=== PATIENT | female | born 1960 | race African-American/Black ===

== ENCOUNTER 2020-03-31 11:38 | Inpatient (IN) | payer OTHER ==
[~2020-03-31] VITALS: Ht 152.4 cm; Wt 77.1 kg
[2020-03-31 11:40] VITALS: BP 141/84
--- NOTE | 2020-03-31 12:11 | Emergency Room Report ---
History of Present Illness General Chief Complaint: Chest Pain Source: Patient, EMS Present Illness HPI Patient is a 59-year-old female past medical history of leukemia recent diagnosis status post chemotherapy last chemo March 22 also the date of first discharge from [facility] where she states she went in for abdominal pain and was diagnosed with leukemia a month prior presents to the ER from home for chest davon n. Patient was brought in by EMS. Patient complains of substernal chest pain which is sharp with associated shortness of breath. EMS gave the patient oral aspirin as well as sublingual nitro. She states that it mildly improved her pain. She states that the pain is worse on deep inspiration. She denies any fever or chills. She denies any cough. Denies any abdominal pain. She complains of left calf pain. She states that while she was at [facility] they did ultrasounds and told her that she would did not have a blood clot. She denies any cardiac history. Allergies: Coded Allergies: No Known Allergies (Unverified , 03/31/20) COVID-19 Screening Contact w/high risk pt: No Experienced COVID-19 symptoms?: No COVID-19 Testing performed CHISEL GRINDER: Yes - a week ago COVID-19 Screening: Negative COVID-19 COVID-19 Testing Source: clinic Patient History Reviewed Nursing Documentation: PMH: Agreed; PSxH: Agreed Review of Systems All Other Systems: negative except mentioned in HPI Physical Exam Vital Signs Date Time Temp Pulse Resp B/P (MAP) Pulse Ox O2 Delivery O2 Flow Rate FiO2 03/31/20 11:30 98.6 19 136/90 (105) 99 Room Air Sp02 EP Interpretation: reviewed, normal General Appearance: alert, GCS 15, non-toxic, mild distress Head: normocephalic, atraumatic Eyes: bilateral eye normal inspection, bilateral eye PERRL ENT: hearing grossly normal, normal pharynx, no angioedema, normal voice Neck: full range of motion, supple/symm/no masses Respiratory: chest non-tender, lungs clear, normal breath sounds, speaking full sentences Cardiovascular #1: normal peripheral pulses, regular rate, rhythm Gastrointestinal: normal bowel sounds, non tender, soft, non-distended, no guarding, no rebound Rectal: deferred Musculoskeletal: other - Left calf tenderness to palpation with no erythema, left upper extremity PICC line in place Neurologic: associate faculty III-XII nml as tested, oriented x3 Psychiatric: judgement/insight normal Skin: no rash Lymphatic: no adenopathy Procedures Critical Care Time Critical Care Time Total critical care time: Approximately 35 minutes. Due to a high probability of clinically significant, life threatening deterioration, the patient required my highest level of preparedness to intervene emergently and I personally spent this critical care time directly and personally managing the patient. This critical care time included obtaining a history; examining the patient; pulse oximetry; ordering and review of studies; arranging urgent treatment with development of a management plan; evaluation of patient's response to treatment; frequent reassessment; and, discussions with other providers.This critical care time was performed to assess and manage the high probability of imminent, life- threatening deterioration that could result in multi-organ failure. It was exclusive of separately billable procedures and treating other patients and teaching time. Please see MDM section and the rest of the note for further information on pat ient assessment and treatment. Medical Decision Making Diagnostic Impression: Primary Impression: Chest pain Additional Impression: Deep vein thrombosis ER Course Patient's ultrasound demonstrates DVT of the left lower extremity. Heparin has been ordered. Patient is pending a CTA chest to RO PE. I spoke with Dr. Chase from [facility] who states that the patient can be admitted here due to the fact the patient has active chest pain, intermittent tachycardia, DVT and likely PE on heparin. Laboratory Tests Test 03/31/20 11:55 White Blood Count 6.6 K/UL (4.8-10.8) Red Blood Count 2.76 M/UL (4.20-5.40) L Hemoglobin 9.3 G/DL (12.0-16.0) L Hematocrit 28.8 % (37.0-47.0) L Mean Corpuscular Volume 105 FL (80-99) H Mean Corpuscular Hemoglobin 33.7 PG (27.0-31.0) H Mean Corpuscular Hemoglobin Concent 32.3 G/DL (32.0-36.0) Red Cell Distribution Width 20.6 % (11.6-14.8) H Platelet Count 215 K/UL (150-450) Mean Platelet Volume 6.4 FL (6.5-10.1) L Neutrophils (%) (Auto) 74.4 % (45.0-75.0) Lymphocytes (%) (Auto) 12.4 % (20.0-45.0) L Monocytes (%) (Auto) 10.3 % (1.0-10.0) H Eosinophils (%) (Auto) 1.5 % (0.0-3.0) Basophils (%) (Auto) 1.4 % (0.0-2.0) Prothrombin Time 10.3 SEC (9.30-11.50) Prothrombin Time INR 0.9 (0.9-1.1) Activated Partial Thromboplast Time 20 SEC (23-33) L D-Dimer 3.28 mg/L FEU (0.00-0.49) H Sodium Level 140 MMOL/L (136-145) Potassium Level 4.4 MMOL/L (3.5-5.1) Chloride Level 106 MMOL/L (98-107) Carbon Dioxide Level 27 MMOL/L (21-32) Anion Gap 7 mmol/L (5-15) Blood Urea Nitrogen 15 mg/dL (7-18) Creatinine 0.8 MG/DL (0.55-1.30) Estimated Glomerular Filtration Rate > 60 mL/min (>60) Glucose Level 139 MG/DL (74-106) H Calcium Level 8.3 MG/DL (8.5-10.1) L Magnesium Level 2.1 MG/DL (1.8-2.4) Total Bilirubin 0.6 MG/DL (0.2-1.0) Aspartate Amino Transferase (AST) 17 U/L (15-37) Alanine Aminotransferase (ALT) 33 U/L (12-78) Alkaline Phosphatase 37 U/L (46-116) L Troponin I 0.004 ng/mL (0.000-0.056) Pro-B-Type Natriuretic Peptide 60 pg/mL (0-125) Total Protein 6.4 G/DL (6.4-8.2) Albumin 3.5 G/DL (3.4-5.0) Globulin 2.9 g/dL Albumin/Globulin Ratio 1.2 (1.0-2.7) EKG Diagnostic Results Troponin ordered: Yes When was troponin ordered?: Mar 31, 2020 EKG Time: 11:37 EP Interpretation: Desi Renee MD Rate: normal - 93 bpm Rhythm: NSR ST Segments: no acute changes ASA given to the pt in ED: No Rhythm Strip Diag. Results Rhythm Strip Time: 12:10 EP Interpretation: yes - Desi Renee MD Rate: 108 bpm Rhythm: no PVC's, no ectopy, other - Sinus tachycardia Chest X-Ray Diagnostic Results Chest X-Ray Diagnostic Results : Chest X-Ray Ordered: Yes # of Views/Limited/Complete: 1 View Indication: Chest Pain EP Interpretation: Yes Interpretation: no consolidation, no effusion, no pneumothorax, no acute cardiopulmonary disease, other - Mild cardiomegaly Impression: No acute disease Electronically Signed by: Desi Renee MD Last Vital Signs Date Time Temp Pulse Resp B/P (MAP) Pulse Ox O2 Delivery O2 Flow Rate FiO2 03/31/20 11:30 98.6 19 136/90 (105) 99 Room Air Disposition: ADMITTED INPATIENT - Telemetry Condition: Critical Additional Instructions: Please note that this report is being documented using DRAGON technology. This can lead to erroneous entry secondary to incorrect interpretation by the dictating instrument. Deis Renee M.D. Mar 31, 2020 12:10
[2020-03-31 12:18] LABS: BASOPHILS % (AUTO) 1.4 % (0.0-2.0); EOSINOPHILS % (AUTO) 1.5 % (0.0-3.0); HEMATOCRIT 28.8 % (37.0-47.0); HEMOGLOBIN 9.3 G/DL (12.0-16.0); LYMPHOCYTES % (AUTO) 12.4 % (20.0-45.0); MEAN CORPUSCULAR VOLUME 105 FL (80-99); MONOCYTES % (AUTO) 10.3 % (1.0-10.0); NEUTROPHILS % (AUTO) 74.4 % (45.0-75.0); PLATELET COUNT 215 K/UL (150-450); RED BLOOD COUNT 2.76 M/UL (4.20-5.40); RED CELL DISTRIBUTION WIDTH 20.6 % (11.6-14.8); WHITE BLOOD COUNT 6.6 K/UL (4.8-10.8)
[2020-03-31] MEDS: fentaNYL 100 mcg/2 mL IV ONE ×2 (12:18→12:19)
[2020-03-31 12:36] LABS: ANION GAP 7 mmol/L (5-15); BLOOD UREA NITROGEN 15 mg/dL (7-18); CALCIUM 8.3 MG/DL (8.5-10.1); CARBON DIOXIDE 27 MMOL/L (21-32); CHLORIDE 106 MMOL/L (98-107); CREATININE 0.8 MG/DL (0.55-1.30); POTASSIUM 4.4 MMOL/L (3.5-5.1); SODIUM 140 MMOL/L (136-145)
[2020-03-31 12:38] LABS: INR 0.9 (0.9-1.1)
[2020-03-31 12:42] LABS: ALANINE AMINOTRANSFERASE 33 U/L (12-78); ALBUMIN 3.5 G/DL (3.4-5.0); ALBUMIN/GLOBULIN RATIO 1.2 (1.0-2.7); ALKALINE PHOSPHATASE 37 U/L (46-116); ASPARTATE AMINO TRANSFERASE 17 U/L (15-37); BILIRUBIN,TOTAL 0.6 MG/DL (0.2-1.0)
[2020-03-31] MEDS ORDERED: Omnipaque 350 100ml vial INJ PRN (13:15)
[2020-03-31 13:30] VITALS: BP 148/81
[2020-03-31] MEDS ORDERED: Heparin 5000 units/ml inj IV ONE (13:30)
[2020-03-31] MEDS ORDERED: Heparin 25,000u/D5W 500ml 500 ML IV SCH (13:30)
--- NOTE | 2020-03-31 15:26 | Diagnostic Imaging Report ---
ndication: Substernal chest pain and shortness of breath Technique: IV administration nonionic contrast. Spiral acquisitions obtained from the lung bases to the lung apices. Multiplanar and 3-D reconstructions were generated. Total dose length product 257 mGycm. CTDIvol(s) 3, 45, 7 mGy. Dose reduction achieved using automated exposure control Comparison: none Findings: Pulmonary arteries are well-opacified. No intraluminal filling defects or other findings to suggest acute pulmonary embolus are evident. Normal caliber pulmonary arteries. No evidence of thoracic aortic aneurysm or dissection. Normal anatomy of the proximal abdominal visceral vessels. Tiny focal opacities in the right costophrenic sulcus likely represent focal areas of atelectasis. The lungs and pleural spaces are otherwise clear. The heart size is normal. No pericardial effusion. No mediastinal or hilar mass or adenopathy. There is a left arm PICC. Unremarkable esophagus. No axillary or chest wall mass or adenopathy The included upper abdominal viscera are unremarkable. Impression: Essentially unremarkable exam. Incidental findings as noted, including PICC, minimal right basilar atelectatic changes The CT scanner at [facility] is accredited by the [employer] and the scans are performed using protocols designed to limit radiation exposure to as low as reasonably achievable to attain images of sufficient resolution adequate for diagnostic evaluation.
[2020-03-31 15:30] VITALS: BP 141/74
--- NOTE | 2020-03-31 16:52 | Diagnostic Imaging Report ---
Indication: Chest pain Technique: One view of the chest Comparison: none Findings: Lungs and pleural spaces are clear. Heart size is normal. There is a left arm PICC Impression: No acute process
--- NOTE | 2020-03-31 17:11 | Diagnostic Imaging Report ---
Indication: Leg pain Technique: Grayscale and duplex images of the bilateral lower extremity veins Comparison: Findings: On the right, grayscale and duplex images demonstrate no evidence of intraluminal thrombus. Normal phasic Doppler waveforms, demonstrating normal augmentation response and no evidence of valvular insufficiency. Greater saphenous vein(s) and tibial veins are patent. Normal compressibility. On the left, thrombus is seen within the popliteal vein. This results in obstructive flow and noncompressibility. The femoral and common femoral venous segments are patent, as are the distal popliteal and calf veins. Impression: Positive for left popliteal deep venous thrombosis
[2020-03-31 17:30] VITALS: BP 137/79
[2020-03-31] MEDS ORDERED: Milk of Magnesia 30ml Ud ORAL PRN (19:00)
[2020-03-31 20:00] VITALS: BP 131/81
[2020-04-01] VITALS: BP 129/77
--- NOTE | 2020-04-01 01:30 | History and Physical Report ---
DATE OF ADMISSION: 03/31/2020 REASON FOR ADMISSION: Chest pain. HISTORY OF PRESENT ILLNESS: This 59-year-old female was diagnosed with leukemia in the past few months. She started chemotherapy. The last session was 03/22/2020. She was scheduled yesterday for another session, but because of apparent change in her insurance, could not get it done. The patient noted progressive leg swelling and pain on the left side for the past few days. She also noted some chest discomfort that was described as sharp and worse with lying flat and inspiration. She came into the emergency room. She apparently had some nitroglycerin and thinks it may have improved her discomfort a little bit. Further workup was notable for an acute DVT in the left lower extremity and a negative lung scan for pulmonary embolus. PAST MEDICAL HISTORY: Leukemia as noted above. Details not available from patient. ALLERGIES: None. MEDICATIONS: Reviewed. FAMILY HISTORY: Noncontributory. SOCIAL HISTORY: Negative for smoking, alcohol, or substance abuse. REVIEW OF SYSTEMS: Notable for negative COVID-19 test 1 week ago prior to chemotherapy. PHYSICAL EXAMINATION: VITAL SIGNS: Blood pressure 136/90, pulse 92, respirations 19, afebrile. HEENT: Conjunctivae pink. Oropharynx clear. NECK: Supple. Jugular venous pressure normal. LUNGS: Clear. CHEST WALL: With tenderness to palpation. CARDIAC: Regular rhythm and rate. Normal S1, S2 with no heaves, rubs, or gallops. No murmur. ABDOMEN: Soft, nontender. No masses. EXTREMITIES: With tenderness over the left calf laterally. There is a PICC line in the left upper extremity. NEUROLOGIC: Nonfocal. LABORATORY AND DIAGNOSTIC DATA: EKG revealed sinus tachycardia at 108, no acute abnormalities. Chest x-ray, no acute process. Natriuretic peptide 60. Troponin 0.004. BUN 15, creatinine 0.8, potassium 4.4. White count 6.6 and hemoglobin 9.3. IMPRESSION: 1. Acute DVT of the left lower extremity. 2. Pleuritic chest pain. Negative workup today for a pulmonary embolus, although probability is not excluded completely. PLAN: 1. Full anticoagulation with IV heparin. 2. Transition to oral therapy over the next 24 to 48 hours. 3. Echocardiogram to assess for pericardial disease and right heart abnormalities. 4. Pain control. 5. Outpatient Hematology, Oncology followup. Juma Marques M.D. DR: KHUSHBU JOB#: [id number] CC:
[2020-04-01] MEDS ORDERED: Miralax 17gm pkt ORAL PRN (03:30)
[2020-04-01 04:00] VITALS: BP 117/77
[2020-04-01] MEDS ORDERED: Naproxen 500mg tab ORAL PRN (04:00)
[2020-04-01 04:55] LABS: BASOPHILS % (AUTO) 1.2 % (0.0-2.0); EOSINOPHILS % (AUTO) 2.6 % (0.0-3.0); HEMATOCRIT 27.4 % (37.0-47.0); HEMOGLOBIN 8.6 G/DL (12.0-16.0); LYMPHOCYTES % (AUTO) 19.8 % (20.0-45.0); MEAN CORPUSCULAR VOLUME 108 FL (80-99); MONOCYTES % (AUTO) 11.7 % (1.0-10.0); NEUTROPHILS % (AUTO) 64.7 % (45.0-75.0); PLATELET COUNT 201 K/UL (150-450); RED BLOOD COUNT 2.53 M/UL (4.20-5.40); RED CELL DISTRIBUTION WIDTH 21.8 % (11.6-14.8); WHITE BLOOD COUNT 5.5 K/UL (4.8-10.8)
[2020-04-01 05:15] LABS: ALANINE AMINOTRANSFERASE 29 U/L (12-78); ALBUMIN 3.1 G/DL (3.4-5.0); ALBUMIN/GLOBULIN RATIO 1.1 (1.0-2.7); ALKALINE PHOSPHATASE 37 U/L (46-116); ANION GAP 8 mmol/L (5-15); ASPARTATE AMINO TRANSFERASE 16 U/L (15-37); BILIRUBIN,TOTAL 0.5 MG/DL (0.2-1.0); BLOOD UREA NITROGEN 12 mg/dL (7-18); CALCIUM 8.5 MG/DL (8.5-10.1); CARBON DIOXIDE 28 MMOL/L (21-32); CHLORIDE 116 MMOL/L (98-107); CREATININE 0.9 MG/DL (0.55-1.30); POTASSIUM 4.8 MMOL/L (3.5-5.1); SODIUM 152 MMOL/L (136-145)
[2020-04-01] MEDS ORDERED: Heparin 25,000u/D5W 500ml 500 ML IV SCH (07:20)
[2020-04-01 08:00] VITALS: BP 117/71
[2020-04-01] MEDS ORDERED: Docusate 100mg cap ORAL SCH (09:00)
[2020-04-01] MEDS ORDERED: Eliquis 5mg tablet ORAL SCH (09:00)
[2020-04-01] MEDS ORDERED: Acyclovir 200mg Cap ORAL SCH (09:00)
[2020-04-01] MEDS ORDERED: Fluconazole 100mg tab ORAL SCH (09:00)
[2020-04-01] MEDS ORDERED: Simethicone 80mg tab ORAL SCH (09:00)
[2020-04-01] MEDS ORDERED: Sennosides 8.6mg tab ORAL SCH (09:00)
[2020-04-01 12:00] VITALS: BP 115/64
--- NOTE | 2020-04-01 14:16 | Consultation ---
DATE OF CONSULTATION: 04/01/2020 PULMONARY CONSULTATION CONSULTING PHYSICIAN: Guero Pedersen MD. HISTORY OF PRESENT ILLNESS: This is a 59-year-old female with a history of leukemia on chemotherapy. The patient has had increased swelling of the left lower leg for the last few days. She underwent an imaging workup in the emergency room and was found to have evidence of a left popliteal DVT. The patient also underwent a CT pulmonary angiogram, which did not show any evidence of pulmonary embolism. At this time, the patient states she is feeling better. PAST HISTORY: Leukemia. No other details available. ALLERGIES: None. HOME MEDICATIONS: Reviewed and reconciled in the chart. SOCIAL HISTORY: No alcohol or tobacco usage. REVIEW OF SYSTEMS: Denies any headaches, hematemesis, melena, hematochezia, night sweats, or weight loss. PHYSICAL EXAMINATION: VITAL SIGNS: Blood pressure is 117/70, heart rate is 104, respirations are 18, temperature 98.1, saturation on room air. HEENT: Unremarkable. LUNGS: Clear breath sounds bilaterally. ABDOMEN: Soft. EXTREMITIES: There is no edema. NEUROLOGIC: Nonfocal. LABORATORY DATA: Lab testing shows hemoglobin 8.6, otherwise normal CBC and BMP. Sodium this morning is 152. Coags show D-dimer of 3.28. IMPRESSION: 1. Popliteal DVT. 2. Leukemia. DISCUSSION: Agree with Dr. Marques's assessment. I suspect she will be able to discharge on Eliquis. Currently, she is on full-dose anticoagulation with IV heparin with which I concur. We will follow carefully. Guero Pedersen M.D. DR: MATT JOB#: [id number] CC:
[2020-04-01 15:12] LABS: ANION GAP 14 mmol/L (5-15); BLOOD UREA NITROGEN 10 mg/dL (7-18); CARBON DIOXIDE 20 MMOL/L (21-32); CHLORIDE 105 MMOL/L (98-107); CREATININE 0.9 MG/DL (0.55-1.30); POTASSIUM 4.2 MMOL/L (3.5-5.1); SODIUM 139 MMOL/L (136-145)
[2020-04-01 16:00] VITALS: BP 143/85
--- NOTE | 2020-04-01 18:42 | Cardiology Progress Note ---
Subjective DATE OF SERVICE: Apr 01, 2020 No CP or SOB. On IV heparin without s/s bleeding. Na elevated today; patient with good po intake. 2D Echo: no signs of right heart strain. Normal LVEF and valve function Objective Last 24 Hour Vital Signs Date Time Temp Pulse Resp B/P (MAP) Pulse Ox O2 Delivery O2 Flow Rate FiO2 04/01/20 16:00 112 04/01/20 16:00 98.1 87 19 143/85 (104) 99 04/01/20 12:00 98.1 87 21 115/64 (81) 96 04/01/20 12:00 96 04/01/20 09:24 97.8 04/01/20 09:00 Room Air 04/01/20 08:00 110 04/01/20 08:00 109.0 94 18 117/71 (86) 98 04/01/20 04:00 84 04/01/20 04:00 98.1 92 18 117/77 (90) 99 04/01/20 00:00 99.1 88 18 129/77 (94) 99 04/01/20 00:00 88 03/31/20 21:59 Room Air 03/31/20 20:00 98.5 92 18 131/81 (98) 100 03/31/20 20:00 89 03/31/20 19:15 97.8 89 18 141/74 98 Room Air HEENT: normal ENT inspection RHYTHM: NSR LUNGS: lungs clear bilaterally CARDIAC: normal rate, regular rhythm, normal S1 and S2 ABDOMEN: normal bowel sounds, non tender, soft EXTREMITIES: other - Left calf tenderness with mild swelling Laboratory Tests Test 03/31/20 20:30 04/01/20 04:30 04/01/20 14:30 Activated Partial Thromboplast Time 94 SEC (23-33) H 107 SEC (23-33) H White Blood Count 5.5 K/UL (4.8-10.8) Red Blood Count 2.53 M/UL (4.20-5.40) L Hemoglobin 8.6 G/DL (12.0-16.0) L Hematocrit 27.4 % (37.0-47.0) L Mean Corpuscular Volume 108 FL (80-99) H Mean Corpuscular Hemoglobin 34.1 PG (27.0-31.0) H Mean Corpuscular Hemoglobin Concent 31.5 G/DL (32.0-36.0) L Red Cell Distribution Width 21.8 % (11.6-14.8) H Platelet Count 201 K/UL (150-450) Mean Platelet Volume 6.6 FL (6.5-10.1) Neutrophils (%) (Auto) 64.7 % (45.0-75.0) Lymphocytes (%) (Auto) 19.8 % (20.0-45.0) L Monocytes (%) (Auto) 11.7 % (1.0-10.0) H Eosinophils (%) (Auto) 2.6 % (0.0-3.0) Basophils (%) (Auto) 1.2 % (0.0-2.0) Sodium Level 152 MMOL/L (136-145) #H 139 MMOL/L (136-145) # Potassium Level 4.8 MMOL/L (3.5-5.1) 4.2 MMOL/L (3.5-5.1) Chloride Level 116 MMOL/L (98-107) H 105 MMOL/L (98-107) Carbon Dioxide Level 28 MMOL/L (21-32) 20 MMOL/L (21-32) L Anion Gap 8 mmol/L (5-15) 14 mmol/L (5-15) Blood Urea Nitrogen 12 mg/dL (7-18) 10 mg/dL (7-18) Creatinine 0.9 MG/DL (0.55-1.30) 0.9 MG/DL (0.55-1.30) Estimat Glomerular Filtration Rate > 60 mL/min (>60) > 60 mL/min (>60) Glucose Level 100 MG/DL (74-106) 170 MG/DL (74-106) H Calcium Level 8.5 MG/DL (8.5-10.1) 9.0 MG/DL (8.5-10.1) Total Bilirubin 0.5 MG/DL (0.2-1.0) Aspartate Amino Transf (AST/SGOT) 16 U/L (15-37) Alanine Aminotransferase (ALT/SGPT) 29 U/L (12-78) Alkaline Phosphatase 37 U/L (46-116) L Troponin I 0.016 ng/mL (0.000-0.056) Total Protein 5.9 G/DL (6.4-8.2) L Albumin 3.1 G/DL (3.4-5.0) L Globulin 2.8 g/dL Albumin/Globulin Ratio 1.1 (1.0-2.7) Microbiology Date/Time Source Procedure Growth Status 03/31/20 12:50 Nasopharynx Coronavirus COVID-19 PCR ([facility]) - Final Complete Assessment/Plan Assessment/Plan Lymphoma DVT, acute Probable erroneous Na+ level rather than dehydration/hypernatremia Transition from IV heparin to oral Eliquis 5 bid Other meds without change from admit. Free water replacement pending results of repeat chem panel DC home with outpatient chemo rx and Oncology follow up Juma Marques MD Apr 01, 2020 18:42
[2020-04-02] MEDS ORDERED: Bactrim-DS 1 tab ORAL SCH (09:00)
--- NOTE | 2020-04-05 10:37 | Discharge Summary ---
Discharge Summary Discharge Summary _ DATE OF ADMISSION: 03/31/2020 DATE OF DISCHARGE: 04/01/2020 DISCHARGED BY: REASON FOR ADMISSION: 59 years old female with past medical history of leukemia , status post recent chemotherapy in February (diagnosed with leukemia a month ago , and was hospitalized at [facility]), presented due to chest pain. Patient was brought by paramedics. Patient reported substernal chest pain , described as sharp and associated with shortness of breath. Patient received oral aspirin and sublingual nitroglycerin in route to the hospital. Symptoms mildly improved . Pain reported being worse with a deep inspiration. No fever or chills. No cough. No abdominal pain . Patient also reported left calf pain. She stated that she had ultrasound of her legs at [facility] and was told that she did not have any blood clots. Patient denied any cardiac history. Upon evaluation vital signs were stable. Patient undergone venous duplex BLE, which revealed left popliteal deep venous thrombosis. Chest x-ray revealed no acute cardiopulmonary pathology. CTA of the chest was essentially unremarkable. Minimal right basilar atelectatic changes noted ; no pericardial effusion, no mediastinal hilar mass or adenopathy. No axillary or chest wall mass , or adenopathy. No evidence of pulmonary emboli or thoracic aortic aneurysm or dissection. Laboratory work-up revealed anemia with hemoglobin 9.3 ,hematocrit 28.8 ,platelet count 215 ; no leukocytosis. Rapid COVID-19 in ED was negative. Stable electrolytes. Glucose 139. Troponin negative . Stable LFT, lipase and albumin. Patient started on heparin drip and admitted to telemetry floor for further management. CONSULTANTS: pulmonary Dr. Pedersen HOSPITAL COURSE: Patient admitted to telemetry floor. Supplemental oxygen provided and titrated to keep pulse oximetry above 92% ; pulse oximetry remained stable on room air. Repeated troponin was negative. EKG revealed sinus rhythm, no acute ischemic changes . Patient was ruled out for acute NH. Echocardiogram revealed preserved ejection fraction of 55%. Patient transitioned from IV heparin to oral Eliquis. Renal parameters and electrolytes were closely monitored. Patient noted to have sodium 152 , likely erroneous reading, since repeated sodium the same day was 139 . Patient was stable for discharge home with outpatient chemotherapy and oncology follow-up. Pain management was addressed as needed. Pain was controlled. Supportive care provided. Patient clinically stabilized and was ready for discharge home. Prescription for Eliquis with 3-month supply provided. Due to rapid and unexpected improvement in patient condition , patient will discharge in 1 day. FINAL DIAGNOSES: Leukemia Acute DVT left lower extremity DISCHARGE MEDICATIONS: See Medication Reconciliation list. DISCHARGE INSTRUCTIONS: Patient was discharged home. Follow-up with outpatient chemotherapy and oncologist. I have been assigned to dictate discharge summary for this account. I was not involved in the patient's management. Gisele Richardson NP Apr 05, 2020 10:37
== END 2020-04-01 20:05 | disposition home or self-care (01) | DRG 300 ==
LOC: EDBD 11:38 → EMR 12:11 → EDBEDREQ 13:24 → 2E 14:09 → EDBEDREQ 18:27
DX: I82.432 Acute embolism and thrombosis of left popliteal vein (principal); C95.90 Leukemia, unspecified not having achieved remission; R09.1 Pleurisy; Z92.21 Personal history of antineoplastic chemotherapy
CPT/HCPCS: 36415; 71045; 71275; 80048; 80053; 83735; 83880; 84484; 85025; 85379; 85610; 85730; 93005; 93306; 93970; 96361; 96374; 99291; J2405; J7030

== ENCOUNTER 2020-04-03 20:43 | Emergency (ER) | payer OTHER ==
[~2020-04-03] VITALS: Ht 152.4 cm; Wt 75.3 kg
--- NOTE | 2020-04-03 21:00 | NUR ---
ED Nurse Note: Patient walked into the ED from home with c/o chest pain onset 3 hours ago. Pt stated having left sided chest pain, nonradiating, comes and goes, rated 5/10. Patient stated that chest pain was more on right side 3 days ago. Patient has PICC line on left upper arm and was undergoing chemo. Patient denies SOB/, fever and chills, N/V/D. PAtient is AAOX4 and ambulatory. Placed on monitor bed.
--- NOTE | 2020-04-03 21:05 | NUR ---
ED Nurse Note: ERMD at bedside
--- NOTE | 2020-04-03 21:17 | Emergency Room Report ---
History of Present Illness General Chief Complaint: Chest Pain Source: Patient Present Illness HPI 59-year-old female with past medical history of leukemia on chemo, left lower extremity DVT on Eliquis, presents with chest pain x3 hours Pain is located on the left side of the chest and is nonradiating, episodic, and sharp in nature. Also complains of atraumatic right knee pain. Patient is concerned that she has osteoarthritis. States the pain is different from her L leg pain when she was dx with DVT. She has been compliant with her Eliquis 5 mg p.o. daily. Denies hemoptysis, fever, cough, chills, n/v/d, orthopnea, ARREOLA, abd pain, back pain, dysuria or other symptoms. The patient's symptoms were gradual onset, severity was moderate, duration since 1 day. Quality: Sharp Past medical history: Leukemia, Obesity, hypertension, DVT Past surgical history: Denies Smoking: Denies Alcohol use: Denies Drug use: Denies Review of systems: CONST: No fevers or chills, No night sweats PULMONARY: No productive cough, positive shortness of breath CARDIAC: Positive chest pain, No palpitations GI: No vomiting, No diarrhea , No melena_or_BRBPR : No dysuria, No hematuria, No discharge NEURO: No new_focal_weakness_or_numbness, No confusion, No vision changes 14 point Review of Systems is otherwise negative except per HPI Physical Exam: GENERAL: Awake_alert_ nontoxic, no acute distress Spo2 95% on RA -normal. Obese EYES: Extraocular muscles are intact. Conjunctivae clear. Lids without swelling ENT: External nose and ear normal_in_appearance. Oropharynx clear. Head_atraumatic, Moist_oral_mucosa NECK: No JVD. No meningismus. No thyromegaly. Supple. Trachea midline RESP: Normal respiratory effort. Symmetric rise. No stridor. Clear_to_auscultation_No_rales_No_wheezes CARDIAC: Tachy and regular rhytm. No_significant pedal edema. Negative dylan sign bilaterally. ABDOMEN: Soft. Nondistended. Nontender_No_rebound_or_guarding. MSK: Normal muscle tone, without rigidity. Extremities without asymmetric deformity or swelling. SKIN: Warm and dry. No visible cyanosis or pallor NEUROLOGIC: Alert, oriented x3. Motor_and_sensation_grossly_intact. No truncal ataxia. Gait_normal Psych: Normal mood and affect, normal judgment and insight - COORDINATION OF CARE Case was discussed with: Patient Any labs and imaging that were ordered were interpreted as part of the medical decision making: Viewed previous medical records. Patient was here at [place] and discharged on 04/01 for similar symptoms. Patient reports that this is different. CTA of her chest was negative for PE. She was found to have left lower extremity DVT for which she was started on anticoagulation. Medical Decision Making/Plan: Differential diagnosis includes acute myocardial infarction, acute coronary syndrome and unstable angina, pulmonary embolism, pneumothorax, pneumonia, and aortic dissection, among others. Patient is currently well appearing with stable vitals. Low-grade tachycardia resolved with pain control. EKG shows sinus tachycardia. No evidence of STEMI, and initial troponin is negative. Chest xray shows no evidence of pneumothorax, pneumonia, or significant pleural effusion. Trop negative x 1. Pain is atypical and reproducible in nature, nonexertional. Low suspicion for PE as patient is already anticoagulated. Recent CTA chest was negative for PE. The pain is not classic for pericarditis or myocarditis, and the patient has no significant risk factors for a pericardial effusion and has stable vitals signs, unlikely to have tamponade. The patient has no significant risk factors for aortic dissection, no history of connective tissue disorder, and the patients pain is not severe, radiating to the back, or tearing in nature. They have normal bilateral radial and pedal pulses. Care signed out to Dr Ayala pending repeat troponin level. Allergies: Coded Allergies: No Known Allergies (Unverified , 03/31/20) COVID-19 Screening Contact w/high risk pt: No Experienced COVID-19 symptoms?: No COVID-19 Testing performed [employer] OPERATOR: Yes - 04/01/20 COVID-19 Screening: Negative COVID-19 COVID-19 Testing Source: [place] Patient History Last Menstrual Period: n/a Nursing Documentation-[facility] Past Medical History: No History, Except For Hx Cancer: Yes - Leukemia Hx Gastrointestinal Problems: Yes - gallstones, hysterectomy Physical Exam Vital Signs Date Time Temp Pulse Resp B/P (MAP) Pulse Ox O2 Delivery O2 Flow Rate FiO2 04/03/20 20:48 96.8 118 20 117/79 (92) 95 Room Air Sp02 EP Interpretation: reviewed, normal Medical Decision Making Diagnostic Impression: Primary Impression: Chest pain Additional Impressions: Leukemia DVT (deep venous thrombosis) EKG Diagnostic Results Troponin ordered: Yes When was troponin ordered?: Apr 03, 2020 ASA given to the pt in ED: Yes KETTY Haile 12-lead EKG (interpreted by me) Time: 2055 Indication: Rhythm analysis Tracing visualized and Interpreted by me. Rhythm: Sinus tachycardia Rate: 108 bpm QTc: 471 Morphology: No_significant_ST_elevations_or_depressions, No STEMI Impression: Sinus tachycardia Rhythm Strip Diag. Results Rhythm Strip Time: 21:17 EP Interpretation: yes Rate: 118 Rhythm: NSR, no PVC's, no ectopy Chest X-Ray Diagnostic Results Chest X-Ray Diagnostic Results : KETTY Haile Chest X-Ray: Views: 1 view(s) Indication: Chest pain Findings: Normal heart size. Mediastinum normal. No infiltrate. Impression: No acute disease The X-ray(s) were independently viewed and interpreted contemporaneously Electronically signed by Stephanie koroma DO Right Knee X-ray: Views: 3 view(s) No fracture. Normal alignment. Soft tissues normal. Joint spaces normal. Indication: Pain Impression: no acute disease The X-ray(s) were independently viewed and interpreted contemporaneously - Electronically signed by Stephanie koroma DO Last Vital Signs Date Time Temp Pulse Resp B/P (MAP) Pulse Ox O2 Delivery O2 Flow Rate FiO2 //20 20:48 96.8 118 20 117/79 (92) 95 Room Air Admit Decision Time: 22:00 Condition: Stable Signed Out To: DR ANGELO AYALA @ 2200 Referrals: NON PHYSICIAN (PCP) Stephanie Hernandez D.O. Apr 03, 2020 21:17
[2020-04-03 21:30] VITALS: BP 117/79
[2020-04-03] MEDS ORDERED: Morphine Sulfate 4mg/ml Inj (IV USE ONLY) IVP ONE (21:30)
[2020-04-03] MEDS ORDERED: Nitroglycerin 2% oint pkt TOPIC ONE (21:30)
--- NOTE | 2020-04-03 21:30 | NUR ---
ED Nurse Note: Blood sent to lab
[2020-04-03 21:40] LABS: ANION GAP 10 mmol/L (5-15); BASOPHILS % (AUTO) 1.5 % (0.0-2.0); BLOOD UREA NITROGEN 13 mg/dL (7-18); CALCIUM 8.8 MG/DL (8.5-10.1); CARBON DIOXIDE 26 MMOL/L (21-32); CHLORIDE 103 MMOL/L (98-107); EOSINOPHILS % (AUTO) 1.6 % (0.0-3.0); HEMATOCRIT 26.3 % (37.0-47.0); HEMOGLOBIN 9.1 G/DL (12.0-16.0); LYMPHOCYTES % (AUTO) 19.4 % (20.0-45.0); MEAN CORPUSCULAR VOLUME 99 FL (80-99); MONOCYTES % (AUTO) 12.4 % (1.0-10.0); NEUTROPHILS % (AUTO) 65.1 % (45.0-75.0); PLATELET COUNT 263 K/UL (150-450); POTASSIUM 3.9 MMOL/L (3.5-5.1); RED BLOOD COUNT 2.67 M/UL (4.20-5.40); RED CELL DISTRIBUTION WIDTH 20.6 % (11.6-14.8); SODIUM 139 MMOL/L (136-145); WHITE BLOOD COUNT 6.1 K/UL (4.8-10.8)
[2020-04-03 21:42] LABS: INR 0.9 (0.9-1.1)
[2020-04-03] MEDS ORDERED: Omnipaque 350 100ml vial INJ PRN (21:45)
[2020-04-03 21:50] LABS: ALANINE AMINOTRANSFERASE 34 U/L (12-78); ALBUMIN 3.6 G/DL (3.4-5.0); ALBUMIN/GLOBULIN RATIO 1.1 (1.0-2.7); ALKALINE PHOSPHATASE 41 U/L (46-116); ASPARTATE AMINO TRANSFERASE 22 U/L (15-37); BILIRUBIN,TOTAL 0.4 MG/DL (0.2-1.0)
--- NOTE | 2020-04-03 22:00 | NUR ---
ED Nurse Note: Xray done at bedside
--- NOTE | 2020-04-03 22:17 | Diagnostic Imaging Report ---
EXAM: XR Right Knee, 1 or 2 Views CLINICAL HISTORY: PAIN TECHNIQUE: Frontal and/or lateral views of the right knee. COMPARISON: No relevant prior studies available. FINDINGS: Bones/joints: No acute displaced fracture or dislocation. No significant joint effusion. Degenerative changes. Soft tissues: Unremarkable. IMPRESSION: No acute displaced fracture or dislocation.
--- NOTE | 2020-04-03 22:19 | Diagnostic Imaging Report ---
EXAM: XR Chest, 1 View CLINICAL HISTORY: CP TECHNIQUE: Frontal view of the chest. COMPARISON: 03/31/2020. FINDINGS: Lungs: No focal consolidation. Pleural space: Unremarkable. No pneumothorax. Heart: Unremarkable. No cardiomegaly. Mediastinum: Unremarkable. Bones/joints: Unremarkable. Tubes, lines and devices: Stable left PICC. IMPRESSION: No focal consolidation.
--- NOTE | 2020-04-04 | NUR ---
ED Nurse Note: Bonny feliz sent
--- NOTE | 2020-04-04 00:33 | NUR ---
ER DISCHARGE NOTE: Patient is cleared to be discharged per ERMD, pt is aox4, on room air, with stable vital signs. pt was given dc and prescription instructions, pt was able to verbalize understanding, pt id band removed. Kept pts picc line hooked outside. pt is able to ambulate with steady gait. pt took all belongings.
[2020-04-04 00:36] VITALS: BP 127/67
== END 2020-04-04 00:41 | disposition home or self-care (01) ==
LOC: EMR 21:09
DX: R07.9 Chest pain, unspecified (principal); C95.90 Leukemia, unspecified not having achieved remission; I82.402 Acute embolism and thrombosis of unspecified deep veins of left lower extremity; Z79.01 Long term (current) use of anticoagulants; M25.561 Pain in right knee; I10 Essential (primary) hypertension; E66.9 Obesity, unspecified; R00.0 Tachycardia, unspecified; Z90.710 Acquired absence of both cervix and uterus
CPT/HCPCS: 36415; 71045; 73560; 80053; 83880; 84484; 85025; 85610; 85730; 96374; 96375; 99284; J2270; J2405